=== PATIENT | female | born 1985 | race Caucasian/White ===

== ENCOUNTER 2022-02-01 09:43 | Outpatient (CLI) | payer BC, SELFPAY ==
--- OUTSIDE RECORDS SUMMARY | 2022-02-01 09:47 | XMS_ITS | Clinical Summary ---
:1985 Author Organization [facility] [place] [address] Care Team Providers Name Role Phone Clinic, [facility] Primary Care Provider [phone] Allergies No known active allergies Medications No known medications Active Problems Problem Noted Date Family history of cerebral aneurysm 09/21/2021 Recurrent kidney stones Resolved Problems Problem Noted Date Resolved Date No Significant Past Medical History 08/25 No Significant Past Medical History 08/25 Immunizations Name Administration Dates Next Due DTaP 01/05/2010, 08/07/2005 Influenza Virus, Unspecified 01/05/2010 Influenza, IIV3 (Age 6-35 mos) 01/05/2010 Td (Age >=7 Years) 01/05/2010, 08/07/2005 Tdap 01/05/2010 Family History Medical History Relation Name Comments Brain Aneurysm Father Brain Aneurysm Maternal Grandmother Good Health Mother Cancer-breast Paternal Aunt Cancer-breast Paternal Grandmother Cancer-ovarian Paternal Grandmother Relation Name Status Comments Brother Alive Father Maternal Grandmother Mother Alive Paternal Aunt Alive Paternal Grandmother Sister 1 Alive Sister 2 Alive Sister 3 Alive Social History Tobacco Use Types Packs/Day Years Used Date Current Every Day Smoker 1 Smokeless Tobacco: Never Used Tobacco Cessation: Ready to Quit: No; Co unseling Given: Yes Alcohol Use Standard Drinks/Week Comments Yes 0 (1 standard drink = 0.6 oz pure alcoho l) Sex Assigned at Date Recorded Not on file Obstetrics History Para Term AB IAB SAB Ectopic Multiple Living Live Births 1 Date Outcome GA Total Labor/2nd/3rd Weight Sex Delivery Anes PTL Ariana A 1 A5 Name Clin Labor Last Filed Vital Signs Vital Sign Reading Time Taken Comments Blood Pressure 100/80 09/21/2021 1:56 PM CDT Pulse 84 09/21/2021 1:56 PM CDT Temperature 36.8 ??C (98.2 ??F) 03/29/2021 5:24 PM [facility] Respiratory Rate 12 03/29/2021 5:24 PM [facility] Oxygen Saturation 98% 03/29/2021 5:24 PM [facility] Inhaled Oxygen Concentration - - Weight 64.9 kg (143 lb) 09/21/2021 1:56 PM CDT Height 160 cm (5' 2.99) 03/06/2019 1:53 PM [facility] Body Mass Index 25.34 03/06/2019 1:53 PM [facility] Plan of Treatment Health Maintenance Due Date Last Done Comments COVID-19 vaccine series (#1) 1985 Pneumococcal series for age 19-64 (1 02/23/1992 - PCV) HIV for age 15-65 2001 Hepatitis C screening for age 18-79 02/23/2004 Depression screening for age 12+ 09/19/2019 09/18/2018, , 09/05/2017 Tetanus booster 01/06/2020 01/05/2010, 01/05/2010, 08/07/2005 BMI (ht and wt on same day) for age 0103/06/2020 03/06/2019, 09/18/2018, 18+ 09/05/2017 Pap test for age 21-65 09/18/2021 09/18/2018 Influenza for age 9-49 10/26/2021 01/05/2010 Tdap Completed 01/05/2010 Results Not on filefrom Last 3 Months Insurance Payer Benefit Plan / Subscriber ID Effective Dates Phone Addre ss Type Group [employer] [place] [id number] 2021-Presen [address] [place] [address] [employer] [id number] 2021-Presen [address] [address] [place] [address] (Home) [place] [id number] Care Teams Rounding Machine Tender Relationship Specialty Start Date End Date Clinic, [facility] PCP - General 12/09/[address] [place] [id number]
[2022-02-01 12:39] LABS: HCG Qualitative Serum* Negative (Negative)
== END 2022-02-01 09:44 | disposition home or self-care (01) ==
PROVIDERS: Visit Provider Physician Assistant
DX: T83.32XA Displacement of intrauterine contraceptive device, initial encounter (principal); N91.2 Amenorrhea, unspecified; R63.5 Abnormal weight gain
CPT/HCPCS: 84443; 84703

== ENCOUNTER 2022-02-01 10:02 | Outpatient (CLI) | payer BC, SELFPAY ==
--- OUTSIDE RECORDS SUMMARY | 2022-02-01 10:10 | XMS_ITS | Clinical Summary ---
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 Respiratory Rate 12 03/29/2021 5:24 PM ACCOUNTANT HELPER Oxygen Saturation 98% 03/29/2021 5:24 PM ACCOUNTANT HELPER Inhaled Oxygen Concentration - - Weight 64.9 kg (143 lb) 09/21/2021 1:56 PM CDT Height 160 cm (5' 2.99) 03/06/2019 1:53 PM ACCOUNTANT HELPER Body Mass Index 25.34 03/06/2019 1:53 PM ACCOUNTANT HELPER Plan of Treatment Health Maintenance Due Date [...] Type Group [employer] [id number] 2021-Presen [address] [facility] [address] [employer] [id number] 2021-Presen [address] [address] [place] [address] (Home) [place] [id number] Care Teams Director Smb Sales Relationship Specialty Start Date End Date Clinic, [facility] PCP - General 12/09/[address] [place] [id number]
--- NOTE | 2022-02-01 10:15 | CRLHL7_ITS ---
For Patients: As a result of the Century Cures Act, medical imaging exams and procedure reports are released immediately into your electronic medical record. You may view this report before your referring provider. If you have questions, please contact your health care provider. CLINICAL HISTORY: Lost IUD string TECHNIQUE: 2D toussaint scale and color Doppler images were acquired of the pelvis using a transvaginal approach. FINDINGS: On transvaginal imaging, the myometrium has a normal uniform echotexture. The uterus measures 7.9 x 4.6 x 5.3 cm. Intrauterine device is present. The ???T? portion of the IUD is located appropriately within the fundal endometrium. The inferior end of the IUD is located within the Caesarean section scar at the anterior lower uterus. The left ovary measures 4.4 x 2.2 x 2.8 cm in size and the right ovary measures 2.8 x 1.7 x 1.2 cm. The ovaries demonstrate normal arterial and venous blood flow on color Doppler analysis. There are no suspicious fluid collections within the cul-de-sac. Incidental small hemorrhagic left ovarian cyst measuring 2.1 cm. IMPRESSION: The lower portion of the IUD is located within the section scar. The upper portion of the IUD is in good position within the fundal endometrial canal. Dictated by Vitor Walton MD @ 02/02/2022 11:46:11 AM (Electronically Signed)
== END 2022-02-01 10:03 | disposition home or self-care (01) ==
LOC: US 10:02
PROVIDERS: Visit Provider Physician Assistant
DX: T83.32XA Displacement of intrauterine contraceptive device, initial encounter (principal)
CPT/HCPCS: 76830